=== PATIENT | male | born 1960 | race African-American/Black ===

== ENCOUNTER 2022-08-10 10:28 | Emergency (ER) | payer MEDICAID, MEDICARE ==
[~2022-08-10] VITALS: Ht 177.8 cm; Wt 91.0 kg
[2022-08-10] MEDS ORDERED: HYDR-4001 MT (14:12)
[2022-08-10] MEDS ORDERED: DICL100G32 TP (14:14)
[2022-08-10] MEDS ORDERED: KETOROLAC 60MG/2ML VIAL IM ONE (14:15)
[2022-08-10] MEDS ORDERED: HYDROMORPHONE HCL/PF 2MG/ML CPJ IM ONE (14:15)
[2022-08-10 16:18] VITALS: BP 142/84
== END 2022-08-10 16:20 | disposition home or self-care (01) ==
LOC: ER 10:28
DX: M17.0 Bilateral primary osteoarthritis of knee (principal); I10 Essential (primary) hypertension
CPT/HCPCS: 96372; 99284; J1170; J1885